=== PATIENT | female | born 1970 | race Hispanic/Latino ===

== ENCOUNTER 2019-06-27 12:00 | Emergency (ER) | payer BC | END 2019-06-27 13:07 | disposition home or self-care (01) | LOC: EDH 12:00 | DX: S80.12XA Contusion of left lower leg, initial encounter (principal); Z90.49 Acquired absence of other specified parts of digestive tract; Z90.710 Acquired absence of both cervix and uterus; X58.XXXA Exposure to other specified factors, initial encounter; Y93.89 Activity, other specified; Y92.89 Other specified places as the place of occurrence of the external cause; Y99.8 Other external cause status | CPT/HCPCS: 73590 ==